=== PATIENT | male | born 1940 | race Caucasian/White ===

== ENCOUNTER 2019-12-16 05:57 | Day surgery (SDC) | payer MEDICARE ==
[2019-12-15 12:08] LABS: CLARITY,URINE CLEAR (Clear); COLOR,URINE YELLOW (Yellow); GLUCOSE, URINE NEGATIVE (Neg); KETONES,URINE NEGATIVE (Neg); LEUKOCYTE ESTERASE ,URINE NEGATIVE (Neg); NITRITES, URINE NEGATIVE (Neg); OCCULT BLOOD,URINE NEGATIVE (Neg); PH,URINE 5.5 (4.8-8.0); PROTEIN,URINE TRACE mg/dl (Neg); UROBILINOGEN,URINE 0.2 E.U/dL (0.2-1.0)
[2019-12-15 12:10] LABS: BASOPHILS % (AUTO) 0.6 % (0-1); EOSINOPHILS # (AUTO) 0.4 X10'3 (0-0.9); EOSINOPHILS % (AUTO) 5.1 % (0-6); HEMOGLOBIN 15.3 g/dl (14.0-17.9); LYMPHOCYTES # (AUTO) 1.6 X10'3 (1.1-4.8); LYMPHOCYTES % (AUTO) 19.5 % (21-51); MEAN CORPUSCULAR HEMOGLOBIN 29.3 PG (27.0-31.0); MEAN CORPUSCULAR HGB CONC 33.4 g/dL (33.0-36.5); MEAN CORPUSCULAR VOLUME 87.8 FL (78-98); MEAN PLATELET VOLUME 9.8 FL (7.4-10.4); MONOCYTES # (AUTO) 0.8 X10'3 (0-0.9); MONOCYTES % (AUTO) 9.2 % (2-12); NEUTROPHILS # (AUTO) 5.5 X10'3 (1.8-7.7); NEUTROPHILS % (AUTO) 65.6 % (42-75); PLATELET COUNT 237 X10'3 (140-440); RED BLOOD COUNT 5.23 X10'6 (4.70-6.10); RED CELL DISTRIBUTION WIDTH 13.9 % (11.5-14.5); WHITE BLOOD COUNT 8.4 X10'3 (4.5-11.0)
[2019-12-15 12:15] LABS: UA COLLECTION TYPE CLN CATCH MIDSTREAM
[2019-12-15 12:15] LABS: ALBUMIN 3.4 G/DL (3.4-5.0); ANION GAP 8 (8-16); BLOOD UREA NITROGEN 26 MG/DL (7-18); BUN/CREATININE RATIO 20.2 (5.4-32.0); CALCIUM 8.3 MG/DL (8.5-10.1); CHLORIDE 108 MMOL/L (99-107); CREATININE 1.29 MG/DL (0.60-1.10); GLUCOSE 106 MG/DL (70-104); POTASSIUM 3.7 MMOL/L (3.5-5.1); SODIUM 144 MMOL/L (135-145); TOTAL CARBON DIOXIDE 28.3 MMOL/L (24-32); eGFR 53 ML/MIN
[2019-12-15 12:17] LABS: BACTERIA,URINE NONE SEEN /HPF (Neg); FINE GRANULAR CAST 0-3 /LPF (NEGATIVE); MUCUS STRANDS NONE SEEN /LPF (Neg); RBC,URINE NONE SEEN /HPF (0-2); SQUAMOUS EPITHELIAL CELL,UR FEW /LPF (FEW)
[2019-12-15 12:18] LABS: HYALINE CASTS 0-3 /LPF (NEGATIVE)
[2019-12-15 12:19] LABS: PARTIAL THROMBOPLASTIN TIME 26 SECONDS (22-32)
[2019-12-16] VITALS (11 sets, daily range): BP systolic 134–154; BP diastolic 68–80
[~2019-12-16] VITALS: Ht 175.3 cm; Wt 98.7 kg
[~2019-12-16 05:57] MED LIST: ASPI-10 PO; CARV3.122 PO; FISH OIL DR 1,1 EACH PO; FURO-150 PO; GEMF600T89 PO; INSU100C10 SQ; LISI1TAB51 PO; MULT-1074 PO; NIFE90TA2 PO; PIOG45TA65 PO; SYN0.112T PO; UBID50CA23 PO
[2019-12-16] MEDS ORDERED: normal saline 1000ml 1,000 ML IV SCH ×2 (06:20→09:50)
[2019-12-16] MEDS ORDERED: ceFAZolin 2gm in dextrose, iso 50 ML IV ONE ×2 (06:20→07:57)
[2019-12-16] MEDS ORDERED: GEMF600T89 PO (06:50)
[2019-12-16] MEDS ORDERED: EZET10TA6 PO (06:57)
[2019-12-16] MEDS ORDERED: ceFAZolin 1000mg inj ONE (07:37)
[2019-12-16] MEDS ORDERED: fentaNYL/PF 50MCG/1 ML 2ML syringe ONE (07:37)
[2019-12-16] MEDS ORDERED: midazolam 2 mg/2 ml injection ONE (07:37)
[2019-12-16] MEDS ORDERED: LIDOcaine 1% W/epiNEPHrine 1:100,000 20ml vial ONE (07:37)
[2019-12-16] MEDS ORDERED: HYDROcodone/acetaminophen 10/325mg tab PO PRN (09:50)
[2019-12-16] MEDS ORDERED: HYDROcodone/acetaminophen 5mg/325mg tablet PO PRN (09:50)
[2019-12-16] MEDS ORDERED: vancomycin/NS 1 GM ADD-VANTAGE 250 ML IV ONE (12:00)
[2019-12-16] MEDS ORDERED: amiodarone 200mg tablet PO SCH (20:00)
[2019-12-20] MEDS ORDERED: AMIO200T27 PO (12:43)
[2019-12-20] MEDS ORDERED: CEPH-572 PO (12:43)
[2019-12-20] MEDS ORDERED: INSU100I59 SQ (12:43)
== END 2019-12-16 15:00 | disposition home or self-care (01) ==
LOC: SSTAY O 05:57
PROVIDERS: ATTEND Internal Medicine Cardiovascular Disease
DX: I49.5 Sick sinus syndrome (principal); E11.40 Type 2 diabetes mellitus with diabetic neuropathy, unspecified; I27.29 Other secondary pulmonary hypertension; E78.5 Hyperlipidemia, unspecified; E66.3 Overweight; Z68.33 Body mass index [BMI] 33.0-33.9, adult; I25.10 Atherosclerotic heart disease of native coronary artery without angina pectoris; I11.0 Hypertensive heart disease with heart failure; I50.30 Unspecified diastolic (congestive) heart failure; I48.0 Paroxysmal atrial fibrillation; G47.30 Sleep apnea, unspecified; Z85.850 Personal history of malignant neoplasm of thyroid; Z79.899 Other long term (current) drug therapy
CPT/HCPCS: 33208; 36415; 71046; 80048; 81001; 82948; 83735; 85025; 85610; 85730; 87088; 93005; 99152; 99153; C1785; C1894; C1898; J0690; J2250; J3010; J3370; J7030; A4565; A4620; A6449

== ENCOUNTER 2020-01-10 14:13 | Emergency (ER) | payer MEDICARE ==
[~2020-01-10] VITALS: Ht 175.3 cm; Wt 95.5 kg
[~2020-01-10 14:13] MED LIST changes: +ALBU8.5H8 INH; +AMIO200T27 PO; +AMOX-419 PO; -CARV3.122 PO; +EZET10TA6 PO; -FISH OIL DR 1,1 EACH PO; -INSU100C10 SQ; +INSU100I59 SQ; +LACT1CAP26 PO; +LEVO750T46 PO; +LEVO75TA7 PO; -LISI1TAB51 PO; -MULT-1074 PO; -PIOG45TA65 PO; +PRED10TA23 PO; -SYN0.112T PO
[2020-01-10 15:07] LABS: BASOPHILS # (AUTO) 0.1 X10'3 (0-0.2); BASOPHILS % (AUTO) 0.7 % (0-1); EOSINOPHILS # (AUTO) 0.4 X10'3 (0-0.9); EOSINOPHILS % (AUTO) 4.4 % (0-6); HEMATOCRIT 42.2 % (42.0-52.0); LYMPHOCYTES # (AUTO) 0.8 X10'3 (1.1-4.8); LYMPHOCYTES % (AUTO) 9.3 % (21-51); MEAN CORPUSCULAR HEMOGLOBIN 29.3 PG (27.0-31.0); MEAN CORPUSCULAR HGB CONC 33.1 g/dL (33.0-36.5); MEAN CORPUSCULAR VOLUME 88.6 FL (78-98); MEAN PLATELET VOLUME 9.5 FL (7.4-10.4); MONOCYTES # (AUTO) 0.8 X10'3 (0-0.9); NEUTROPHILS # (AUTO) 6.6 X10'3 (1.8-7.7); NEUTROPHILS % (AUTO) 76.6 % (42-75); PLATELET COUNT 240 X10'3 (140-440); RED BLOOD COUNT 4.76 X10'6 (4.70-6.10); RED CELL DISTRIBUTION WIDTH 15.1 % (11.5-14.5); WHITE BLOOD COUNT 8.7 X10'3 (4.5-11.0)
[2020-01-10 15:24] LABS: ALANINE AMINOTRANSFERASE 19 U/L (12-78); ALBUMIN 2.8 G/DL (3.4-5.0); ALBUMIN/GLOBULIN RATIO 0.7 (1.1-1.5); ALKALINE PHOSPHATASE 72 IU/L (46-116); ANION GAP 8 (8-16); ASPARTATE AMINO TRANSFERASE 15 U/L (10-37); BILIRUBIN,TOTAL 1.1 MG/DL (0.1-1.0); BLOOD UREA NITROGEN 24 MG/DL (7-18); BUN/CREATININE RATIO 18.8 (5.4-32.0); CALCIUM 7.9 MG/DL (8.5-10.1); CHLORIDE 103 MMOL/L (99-107); CREATININE 1.28 MG/DL (0.60-1.10); GLUCOSE 170 MG/DL (70-104); POTASSIUM 3.3 MMOL/L (3.5-5.1); SODIUM 138 MMOL/L (135-145); TOTAL CARBON DIOXIDE 26.7 MMOL/L (24-32); eGFR 54 ML/MIN
[2020-01-10] MEDS ORDERED: furosemide 10 MG/1 ML 10ml inj IV ONE (17:50)
--- NOTE | 2020-01-10 18:13 | NUR ---
Pt's biggest concern about lasix was he would be wetting himself. Dryflow, lucinda and depends placed for comfort
[2020-01-10] MEDS ORDERED: potassium Cl 20 mEq SR tablet PO STA (18:14)
[2020-01-10 18:50] VITALS: BP 139/74
[2020-01-10] MEDS ORDERED: DOXY100C77 PO (19:47)
== END 2020-01-10 20:09 | disposition home or self-care (01) ==
LOC: ER 14:14
DX: R60.9 Edema, unspecified (principal); J18.9 Pneumonia, unspecified organism; I50.9 Heart failure, unspecified; E11.9 Type 2 diabetes mellitus without complications; R06.02 Shortness of breath; Z95.0 Presence of cardiac pacemaker; Z88.8 Allergy status to other drugs, medicaments and biological substances; Z79.4 Long term (current) use of insulin; Z79.82 Long term (current) use of aspirin; Z79.899 Other long term (current) drug therapy
CPT/HCPCS: 36415; 71045; 80053; 83880; 84443; 85025; 93005; 96374; 99285; J1940

== ENCOUNTER 2020-03-22 07:12 | Day surgery (SDC) | payer MEDICARE ==
[2020-03-21 12:36] LABS: BASOPHILS # (AUTO) 0.1 X10'3 (0-0.2); BASOPHILS % (AUTO) 1.1 % (0-1); EOSINOPHILS # (AUTO) 0.4 X10'3 (0-0.9); EOSINOPHILS % (AUTO) 6.2 % (0-6); HEMOGLOBIN 13.8 g/dl (14.0-17.9); LYMPHOCYTES # (AUTO) 0.8 X10'3 (1.1-4.8); LYMPHOCYTES % (AUTO) 13.1 % (21-51); MEAN CORPUSCULAR HEMOGLOBIN 29.7 PG (27.0-31.0); MEAN CORPUSCULAR VOLUME 90.2 FL (78-98); MEAN PLATELET VOLUME 9.8 FL (7.4-10.4); MONOCYTES # (AUTO) 0.7 X10'3 (0-0.9); MONOCYTES % (AUTO) 11.5 % (2-12); NEUTROPHILS # (AUTO) 4.2 X10'3 (1.8-7.7); NEUTROPHILS % (AUTO) 68.1 % (42-75); PLATELET COUNT 244 X10'3 (140-440); RED BLOOD COUNT 4.66 X10'6 (4.70-6.10); RED CELL DISTRIBUTION WIDTH 15.6 % (11.5-14.5); WHITE BLOOD COUNT 6.2 X10'3 (4.5-11.0)
[2020-03-21 12:48] LABS: ALBUMIN 3.6 G/DL (3.4-5.0); ANION GAP 8 (8-16); BLOOD UREA NITROGEN 31 MG/DL (7-18); BUN/CREATININE RATIO 20.4 (5.4-32.0); CALCIUM 8.5 MG/DL (8.5-10.1); CHLORIDE 106 MMOL/L (99-107); CREATININE 1.52 MG/DL (0.60-1.10); GLUCOSE 116 MG/DL (70-104); POTASSIUM 3.6 MMOL/L (3.5-5.1); SODIUM 144 MMOL/L (135-145); TOTAL CARBON DIOXIDE 29.8 MMOL/L (24-32); eGFR 44 ML/MIN
[2020-03-22] VITALS (12 sets, daily range): BP systolic 120–138; BP diastolic 70–80
[~2020-03-22] VITALS: Ht 175.3 cm; Wt 95.8 kg
[~2020-03-22 07:12] MED LIST changes: -AMOX-419 PO; -LEVO750T46 PO; -PRED10TA23 PO
[2020-03-22] MEDS ORDERED: diphenhydrAMINE 25mg capsule PO ONE (07:45)
[2020-03-22] MEDS ORDERED: MIDAZolam 1mg/ml 10ml vial IV ONE (07:45)
[2020-03-22] MEDS ORDERED: amiodarone 150mg/dext, iso-os 100 ML IV ONE (07:45)
[2020-03-22] MEDS ORDERED: morphine 10mg/ml inj. IV ONE (07:45)
[2020-03-22] MEDS ORDERED: normal saline 1000ml 1,000 ML IV SCH (07:45)
[2020-03-22] MEDS ORDERED: atropine 0.1mg/ml 10ml syringe IV ONE (07:45)
[2020-03-22] MEDS ORDERED: LORazepam 0.5 MG tablet PO ONE (07:45)
[2020-03-22] MEDS ORDERED: SYN0.112T PO (08:04)
[2020-03-22] MEDS ORDERED: INSU100I8 SQ (08:04)
[2020-03-22] MEDS ORDERED: APIX5TAB3 PO (08:04)
[2020-03-22] MEDS ORDERED: NIFE60TA80 PO (08:04)
[2020-03-22] MEDS ORDERED: POTA20TA19 PO (08:04)
[2020-03-22] MEDS ORDERED: pneumococcal 23-VAL P-sac vacc 25 mcg/0.5ml vial IMVAC ONE (11:10)
== END 2020-03-22 12:05 | disposition home or self-care (01) ==
LOC: SSTAY O 07:12
PROVIDERS: ATTEND Internal Medicine Cardiovascular Disease
DX: I48.19 Other persistent atrial fibrillation (principal); I25.10 Atherosclerotic heart disease of native coronary artery without angina pectoris; E11.40 Type 2 diabetes mellitus with diabetic neuropathy, unspecified; I11.0 Hypertensive heart disease with heart failure; I50.9 Heart failure, unspecified; E78.5 Hyperlipidemia, unspecified; I27.29 Other secondary pulmonary hypertension; G47.30 Sleep apnea, unspecified; I08.1 Rheumatic disorders of both mitral and tricuspid valves; Z95.0 Presence of cardiac pacemaker; Z79.01 Long term (current) use of anticoagulants; Z79.899 Other long term (current) drug therapy; Z23 Encounter for immunization; Z79.4 Long term (current) use of insulin; Z79.82 Long term (current) use of aspirin; Z85.850 Personal history of malignant neoplasm of thyroid
CPT/HCPCS: 36415; 80048; 82948; 85025; 90732; 92960; 93005; G0009; J2250; J2270; J7030

== ENCOUNTER 2020-04-18 07:15 | Day surgery (SDC) | payer MEDICARE ==
[2020-04-17 12:09] LABS: BASOPHILS # (AUTO) 0.1 X10'3 (0-0.2); BASOPHILS % (AUTO) 1.7 % (0-1); EOSINOPHILS # (AUTO) 0.3 X10'3 (0-0.9); HEMATOCRIT 40.7 % (42.0-52.0); HEMOGLOBIN 13.5 g/dl (14.0-17.9); LYMPHOCYTES # (AUTO) 0.7 X10'3 (1.1-4.8); MEAN CORPUSCULAR HEMOGLOBIN 29.5 PG (27.0-31.0); MEAN CORPUSCULAR HGB CONC 33.3 g/dL (33.0-36.5); MEAN CORPUSCULAR VOLUME 88.8 FL (78-98); MEAN PLATELET VOLUME 9.6 FL (7.4-10.4); MONOCYTES # (AUTO) 0.6 X10'3 (0-0.9); NEUTROPHILS # (AUTO) 3.9 X10'3 (1.8-7.7); NEUTROPHILS % (AUTO) 69.3 % (42-75); PLATELET COUNT 201 X10'3 (140-440); RED BLOOD COUNT 4.58 X10'6 (4.70-6.10); RED CELL DISTRIBUTION WIDTH 14.6 % (11.5-14.5); WHITE BLOOD COUNT 5.7 X10'3 (4.5-11.0)
[2020-04-17 12:22] LABS: ALANINE AMINOTRANSFERASE 19 U/L (12-78); ALBUMIN 3.3 G/DL (3.4-5.0); ALBUMIN/GLOBULIN RATIO 0.8 (1.1-1.5); ALKALINE PHOSPHATASE 91 IU/L (46-116); ANION GAP 5 (8-16); ASPARTATE AMINO TRANSFERASE 12 U/L (10-37); BILIRUBIN,TOTAL 0.9 MG/DL (0.1-1.0); BLOOD UREA NITROGEN 24 MG/DL (7-18); BUN/CREATININE RATIO 17.9 (5.4-32.0); CALCIUM 8.5 MG/DL (8.5-10.1); CHLORIDE 108 MMOL/L (99-107); CREATININE 1.34 MG/DL (0.60-1.10); GLUCOSE 114 MG/DL (70-104); POTASSIUM 3.8 MMOL/L (3.5-5.1); SODIUM 144 MMOL/L (135-145); TOTAL CARBON DIOXIDE 31.1 MMOL/L (24-32); TOTAL PROTEIN 7.3 G/DL (6.4-8.2); eGFR 51 ML/MIN
[~2020-04-18] VITALS: Ht 175.3 cm; Wt 95.9 kg
[~2020-04-18 07:15] MED LIST changes: -ALBU8.5H8 INH; +APIX5TAB3 PO; -INSU100I59 SQ; +INSU100I8 SQ; -LACT1CAP26 PO; -LEVO75TA7 PO; +NIFE60TA80 PO; -NIFE90TA2 PO; +POTA20TA19 PO; +SYN0.112T PO
[2020-04-18] MEDS ORDERED: morphine 10mg/ml inj. IV ONE (07:35)
[2020-04-18] MEDS ORDERED: atropine 0.1mg/ml 10ml syringe IV ONE (07:35)
[2020-04-18] MEDS ORDERED: diphenhydrAMINE 25mg capsule PO ONE (07:35)
[2020-04-18] MEDS ORDERED: amiodarone 150mg/dext, iso-os 100 ML IV ONE (07:35)
[2020-04-18] MEDS ORDERED: MIDAZolam 1mg/ml 10ml vial IV ONE (07:35)
[2020-04-18] MEDS ORDERED: LORazepam 0.5 MG tablet PO ONE (07:35)
[2020-04-18] MEDS ORDERED: DILT120C88 PO (07:45)
[2020-04-18] MEDS ORDERED: ASPI-611 PO (07:45)
--- NOTE | 2020-04-18 10:15 | NUR ---
Patient was av paced, dr. alexander cancelled procedure. Patient iv dc'ed. will waste medications since they were drawn up ready to go. Patient picked up in stable condition by .
[2020-04-18 10:52] VITALS: BP 146/101
== END 2020-04-18 10:15 | disposition home or self-care (01) ==
LOC: SSTAY O 07:15
PROVIDERS: ATTEND Internal Medicine Cardiovascular Disease
DX: I48.19 Other persistent atrial fibrillation (principal); Z53.8 Procedure and treatment not carried out for other reasons; I48.92 Unspecified atrial flutter; I25.10 Atherosclerotic heart disease of native coronary artery without angina pectoris; I11.0 Hypertensive heart disease with heart failure; I50.30 Unspecified diastolic (congestive) heart failure; E78.5 Hyperlipidemia, unspecified; G47.33 Obstructive sleep apnea (adult) (pediatric); E11.40 Type 2 diabetes mellitus with diabetic neuropathy, unspecified; I08.1 Rheumatic disorders of both mitral and tricuspid valves; I27.29 Other secondary pulmonary hypertension; E03.9 Hypothyroidism, unspecified; E66.9 Obesity, unspecified; Z68.31 Body mass index [BMI] 31.0-31.9, adult; Z95.0 Presence of cardiac pacemaker; Z79.4 Long term (current) use of insulin; Z79.82 Long term (current) use of aspirin; Z79.899 Other long term (current) drug therapy; Z85.850 Personal history of malignant neoplasm of thyroid; Z98.890 Other specified postprocedural states
CPT/HCPCS: 36415; 80053; 82948; 85025; 85610; 93005

== ENCOUNTER 2020-05-31 14:20 | Outpatient (CLI) | payer MEDICARE ==
[~2020-05-31 14:20] MED LIST changes: -ASPI-10 PO; +ASPI-611 PO; +DILT120C88 PO; -NIFE60TA80 PO
== END 2020-05-31 23:59 | disposition home or self-care (01) ==
LOC: RAD 14:20
PROVIDERS: ATTEND Specialist
DX: R13.12 Dysphagia, oropharyngeal phase (principal); R47.1 Dysarthria and anarthria
CPT/HCPCS: 74230

== ENCOUNTER → 2020-12-29 | Outpatient (CLI) | payer MEDICARE ==
[2020-12-29 14:40] LABS: TOTAL HEMOGLOBIN 16.7 G/dl (14.0-18.0)
== END | disposition home or self-care (01) ==
LOC: RT 14:08
PROVIDERS: ATTEND Internal Medicine Cardiovascular Disease
DX: J90 Pleural effusion, not elsewhere classified (principal); J98.11 Atelectasis; Z79.899 Other long term (current) drug therapy
CPT/HCPCS: 71046; 85018; 94010; 94727; 94729

== ENCOUNTER 2024-06-03 07:08 | Day surgery (SDC) | payer MEDICARE ==
[2024-06-02 14:06] LABS: BASOPHILS # (AUTO) 0.1 X10'3 (0-0.2); BASOPHILS % (AUTO) 0.9 % (0-1); EOSINOPHILS # (AUTO) 0.2 X10'3 (0-0.9); EOSINOPHILS % (AUTO) 3.2 % (0-6); HEMATOCRIT 42.5 % (42.0-52.0); HEMOGLOBIN 14.4 g/dl (14.0-17.9); LYMPHOCYTES # (AUTO) 0.7 X10'3 (1.1-4.8); LYMPHOCYTES % (AUTO) 10.5 % (21-51); MEAN CORPUSCULAR HEMOGLOBIN 31.3 PG (27.0-31.0); MEAN CORPUSCULAR HGB CONC 33.9 g/dL (33.0-36.5); MEAN CORPUSCULAR VOLUME 92.2 FL (78-98); MEAN PLATELET VOLUME 9.8 FL (7.4-10.4); MONOCYTES # (AUTO) 0.5 X10'3 (0-0.9); NEUTROPHILS # (AUTO) 4.8 X10'3 (1.8-7.7); NEUTROPHILS % (AUTO) 77.4 % (42-75); PLATELET COUNT 213 X10'3 (140-440); RED BLOOD COUNT 4.61 X10'6 (4.70-6.10); WHITE BLOOD COUNT 6.2 X10'3 (4.5-11.0)
[2024-06-02 14:19] LABS: ALBUMIN 3.1 G/DL (3.4-5.0); ANION GAP 4 (8-16); BLOOD UREA NITROGEN 32 MG/DL (7-18); BUN/CREATININE RATIO 22.1 (10.0-20.0); CALCIUM 8.2 MG/DL (8.5-10.1); CHLORIDE 107 MMOL/L (99-107); CREATININE 1.45 MG/DL (0.60-1.10); GLUCOSE 138 MG/DL (70-104); POTASSIUM 3.7 MMOL/L (3.5-5.1); SODIUM 144 MMOL/L (135-145); TOTAL CARBON DIOXIDE 32.8 MMOL/L (24-32); eGFR 46 ML/MIN
[2024-06-02 14:30] LABS: INR 1.3 INR; PROTHROMBIN TIME 13.3 SECONDS (9.0-12.0)
[~2024-06-03] VITALS: Ht 172.7 cm; Wt 93.3 kg
[2024-06-03] VITALS (14 sets, daily range): BP systolic 118–150; BP diastolic 64–72; PULSE 70–84; RESP 13–21; TEMP 97.5; O2SAT 92–99
[~2024-06-03 07:08] MED LIST changes: +POTA-208 PO; -POTA20TA19 PO
[2024-06-03] MEDS ORDERED: LORazepam 0.5 MG tablet PO ONE (07:30)
[2024-06-03] MEDS ORDERED: diphenhydrAMINE 25mg capsule PO ONE (07:30)
[2024-06-03] MEDS ORDERED: amiodarone 150mg/dext, iso-os 100 ML IV ONE (07:30)
[2024-06-03] MEDS ORDERED: atropine 0.1mg/ml 10ml syringe IV ONE (07:30)
[2024-06-03] MEDS ORDERED: DILT180C53 PO (08:25)
[2024-06-03] MEDS ORDERED: LOSA50TA64 PO (08:25)
[2024-06-03] MEDS ORDERED: BUME1TAB8 PO (08:25)
[2024-06-03] MEDS ORDERED: LEVO150T PO (08:27)
[2024-06-03] MEDS ORDERED: INSU100I8 SQ (08:29)
[2024-06-03] MEDS: normal saline 1000ml 1,000 ML IV SCH (09:09)
[2024-06-03] MEDS: morphine 10mg/ml inj. IV ONE (09:09)
[2024-06-03] MEDS: MIDAZolam 1mg/ml 10ml vial IV ONE (09:09)
== END 2024-06-03 11:40 | disposition home or self-care (01) ==
LOC: SSTAY O 07:08
PROVIDERS: ATTEND Internal Medicine Cardiovascular Disease
DX: I48.0 Paroxysmal atrial fibrillation (principal); I11.0 Hypertensive heart disease with heart failure; I50.30 Unspecified diastolic (congestive) heart failure; I25.10 Atherosclerotic heart disease of native coronary artery without angina pectoris; E11.9 Type 2 diabetes mellitus without complications; E78.5 Hyperlipidemia, unspecified; G47.30 Sleep apnea, unspecified; Z95.0 Presence of cardiac pacemaker; Z79.899 Other long term (current) drug therapy; Z98.890 Other specified postprocedural states
CPT/HCPCS: 36415; 80048; 82948; 85025; 85610; 92960; 93005; J2250; J2270; J7030; Z7610; J2274